=== PATIENT | male | born 1935 | race Caucasian/White ===

== ENCOUNTER 2016-05-30 16:29 | Inpatient (IN) | payer OTHER ==
[~2016-05-30] VITALS: Ht 175.3 cm; Wt 67.9 kg
[2016-05-30] VITALS (11 sets, daily range): BP systolic 122–181; BP diastolic 73–96
[2016-05-30 17:20] LABS: BASO % 0.2 % (0.0-1.0); EOS % 0.3 % (0.0-3.0); LARGE UNSTAINED CELL # 0.1 K/mm3 (0.0-0.4); LARGE UNSTAINED CELL % 0.8 % (0.0-4.0); LYMPH # 1.1 K/mm3 (1.5-4.5); LYMPH % 8.8 % (24.0-44.0); MEAN CORPUSCULAR HEMOGLOBIN 32.5 pg (27.0-33.0); MEAN CORPUSCULAR HGB CONC 35.1 g/dl (32.0-36.5); MEAN CORPUSCULAR VOLUME 92.4 fl (80.0-96.0); MONO # 0.7 K/mm3 (0.0-0.8); MONO % 5.1 % (0.0-5.0); NEUTROPHILS # 10.7 K/mm3 (1.8-7.7); NEUTROPHILS % 84.7 % (36.0-66.0); PLATELET COUNT, AUTOMATED 244 k/mm3 (150-450); RED CELL DISTRIBUTION WIDTH 11.5 % (11.5-14.5); WHITE BLOOD COUNT 12.6 K/mm3 (4.0-10.0)
[2016-05-30] MEDS ORDERED: KCL 20MEQ IN D5/NS 1000ML 1,000 ML IV SCH (17:21)
[2016-05-30 17:26] LABS: INR 1.24
[2016-05-30] MEDS ORDERED: ACETAMINOPHEN TAB 650MG DOSE (2X325MG) PO PRN (17:30)
[2016-05-30] MEDS ORDERED: NORCO, ANEXSIA 5/325MG TABLET (HYDROcodone/ACETAMINOPHEN) PO PRN (17:30)
[2016-05-30] MEDS ORDERED: BISACODYL 10 MG SUPP PR PRN (17:30)
[2016-05-30] MEDS ORDERED: PERCOCET 5MG/325MG TAB PO PRN (17:30)
[2016-05-30] MEDS ORDERED: LEVALBUTEROL 1.25 MG/0.5 ML CONCENTRATE NEB NEB PRN (17:30)
[2016-05-30] MEDS ORDERED: ONDANSETRON 4MG/2ML VIAL (J2405) IV PRN (17:30)
--- NOTE | 2016-05-30 17:30 | REP ---
Clinical: Trauma. Findings: There is a [id number] right pneumothorax with evidence for acute right rib fractures on recent rib series. Mediastinum and cardiac silhouette are normal in appearance and position without contralateral shift to suggest tension pneumothorax. Bibasilar atelectasis noted. Impression: [id number] right pneumothorax with right lower rib fractures. Signed by Ezequiel Madrid MD 05/30/2016 05:22 P
[2016-05-30] MEDS ORDERED: FLUMAZENIL 0.5 MG/5 ML VIAL As Ordered ONE (17:33)
[2016-05-30] MEDS ORDERED: MIDAZOLAM INJ 2 MG/2 ML VIAL (J2250) As Ordered ONE (17:33)
[2016-05-30] MEDS ORDERED: LIDOCAINE 1% MDV 20ML VIAL As Ordered ONE (17:34)
[2016-05-30 17:35] LABS: CREATININE FOR GFR 1.54 MG/DL (0.70-1.30); GLOMERULAR FILTRATION RATE 46.4 (>35)
[2016-05-30 17:38] LABS: POTASSIUM SERUM 4.4 MEQ/L (3.5-5.1)
[2016-05-30] MEDS ORDERED: KEPP1000 PO (17:44)
[2016-05-30] MEDS ORDERED: HYDR25TAB PO (17:44)
[2016-05-30] MEDS ORDERED: ASPI325T PO (17:44)
[2016-05-30] MEDS ORDERED: KEPP500T6 PO (17:44)
[2016-05-30] MEDS ORDERED: SIMV20TA2 PO (17:46)
[2016-05-30] MEDS ORDERED: LAMO25TA2 PO (17:46)
[2016-05-30] MEDS ORDERED: LISI25TA PO (17:46)
[2016-05-30] MEDS ORDERED: LEVO25TA34 PO (17:46)
--- NOTE | 2016-05-30 18:05 | EDDOCDS ---
Physician Documentation [facility] Name: Viral Montero Age: 81 yrs Sex: Male : 1935 Arrival Date: 05/30/2016 Time: 16:29 Bed 2 Private MD: Amarilys Gil FNP-C Disposition: 05/30/16 17:30 Hospitalization ordered by Joe Epps for Inpatient Admission. Preliminary diagnosis are Traumatic pneumothorax, Multiple fractures of ribs, right side. - Bed requested for PCU. - Status is Inpatient Admission. dy - Condition is Stable. - Problem is new. - Symptoms are unchanged. Historical: - Allergies: no known allergies; - Home Meds: 1. Sam Aspirin 325 mg oral tab 1 tab once daily 2. hydrochlorothiazide 25 mg Oral tab 1 tab 3. levetiracetam 1500mg oral tab 2 times per day 4. levothyroxine 25 mcg Oral cap 1 cap once daily 5. lamotrigine 25 mg Oral tab 2 tabs 2 times per day 6. lisinopril 2.5 mg Oral tab 1 tab once daily 7. simvastatin 20 mg Oral tab 1 tab once daily - PMHx: CVA x3; Hypercholesterolemia; Hypertension; Seizure Disorder; - PSHx: none; - Social history: Smoking status: Patient states was never smoker of tobacco. No barriers to communication noted, The patient speaks fluent Setswana, Speaks appropriately for age. - Family history: Not pertinent. - : The pt / caregiver states he / she is not on anticoagulants. Home medication list is obtained from family members. - Exposure Risk Screening:: None identified. Vital Signs: 05/30 16:31 BP 153 / 87; Pulse 75; Resp 18 S; Temp 97.6(T); Pulse Ox 95% on R/A; Weight 77.11 kg / dd6 170 lbs (R); Height 5 ft. 9 in. (175.26 cm) (R); 16:47 BP 144 / 73 (auto/); mlb1 16:48 Pulse 73 MON; Pulse Ox 94% ; mlb1 16:52 BP 137 / 81 (auto/); mlb1 16:53 Pulse 72 MON; Pulse Ox 98% ; mlb1 17:04 BP 132 / 76 (auto/); mlb1 17:05 Pulse 71 MON; Pulse Ox 99% ; mlb1 17:19 BP 124 / 72 (auto/); mlb1 17:20 Pulse 71 MON; Pulse Ox 97% ; mlb1 17:32 BP 125 / 73 (auto/); mlb1 17:33 BP 125 / 73; Pulse 68; Resp 20; Temp 98.3; Pulse Ox 97% on 2 lpm NC; jlf 17:33 Pulse 69 MON; Pulse Ox 97% ; mlb1 17:49 BP 125 / 69 (auto/); mlb1 17:49 Pulse 69 MON; Pulse Ox 97% ; mlb1 17:59 BP 131 / 70 (auto/); mlb1 17:59 Pulse 70 MON; Pulse Ox 98% ; mlb1 18:02 BP 130 / 68; Pulse 68; Resp 18; Temp 98.1(TE); Pulse Ox 98% on 2 lpm NC; Pain 0/10; mlb1 16:31 Body Mass Index 25.10 (77.11 kg, 175.26 cm) dd6 MDM: 16:38 Undress patient ordered. br1 16:38 IV Saline Lock ordered. br1 16:39 CBC with Diff Ordered. EDMS 16:39 BMP Ordered. EDMS 16:46 Ticket Scheduler/Pulse Ox/q 30 min VS ordered. br1 16:46 PT/INR Ordered. EDMS 16:47 PTT Ordered. EDMS 16:47 Chest, 1 View Ordered. EDMS 16:47 ECG WITH READING ER PHYS+CARDIAG ordered. EDMS 16:52 Oxygen at 2L/min via NC ordered. br1 17:16 Financial registration complete. jpb 17:18 [facility] [place] Payment Agreement was scanned into [employer] and attached to record. jpb 17:25 CBC with Diff Reviewed. br1 17:25 ARTERIAL BLOOD GAS Ordered. EDMS 17:28 Chest, 2 view PA, Lat Ordered. EDMS 17:28 Chest, 2 view PA, Lat Ordered. EDMS 17:28 Chest, 2 view PA, Lat Ordered. EDMS 17:28 Chest, 2 view PA, Lat Ordered. EDMS 17:28 Chest, 2 view PA, Lat Ordered. EDMS 17:28 Chest, 2 view PA, Lat Ordered. EDMS 17:28 Chest, 2 view PA, Lat Ordered. EDMS 17:28 Chest, 2 view PA, Lat Ordered. EDMS 17:28 Chest, 2 view PA, Lat Ordered. EDMS 17:28 Chest, 2 view PA, Lat Ordered. EDMS 17:29 Admission / Observation Status ordered. EDMS 17:29 REGULAR DIET ordered. EDMS Signatures: Dispatcher [employer] EDMS Hiwot Harmon, Magnetic Tape Composer Operator Unit lbd Lasha Bennett, RN RN Zurdo Reyes RN RN mlb1 Osvaldo Cantu MD MD br1 Shyam Whelan Kelsi, RN RN kc3 The chart was reviewed and I authenticate all verbal orders and agree with the evaluation and treatment provided.Attachments: 17:18 [facility] Payment Agreement [email or web address]
--- NOTE | 2016-05-30 18:05 | EDDOCDS ---
Nurse's Notes [facility] Name: Viral Montero Age: 81 yrs Sex: Male : 1935 Arrival Date: 05/30/2016 Time: 16:29 Bed 2 Private MD: Amarilys Gil FNP-C Diagnosis: Traumatic pneumothorax;Multiple fractures of ribs, right side Presentation: 05/30 16:32 Presenting complaint: states: fell from standing last night and sent from [facility] for broken ribs and partial collapsed lung. Adult Sepsis Screening: The patient does not have new or worsening altered mentation. Patient's respiratory rate is less than 22. Systolic blood pressure is greater than 100. Patient has a qSOFA score of 0- Negative Sepsis Screen. Suicide/Homicide risk assessment- the patient denies having any suicidal and/or homicidal ideations and does not present with any other emotional, behavioral or mental health complaints. Status: Patient is not a ward service supervisor or dependent. Transition of care: Patient was received from [facility]. 16:32 Acuity: NATHALIA Level 2 kc3 16:32 Method Of Arrival: Walkin/Carried/Asstd kc3 Triage Assessment: 16:35 General: Appears uncomfortable, Behavior is appropriate for age, cooperative. Pain: kc3 Location: right rib pain Pain currently is 8 out of 10 on a pain scale. Neurological: Level of Consciousness is awake, obeys commands, Speech with expressive aphasia noted. Respiratory: Airway is patent Respiratory effort is even, unlabored. Derm: Skin is pink, warm & dry. Musculoskeletal: Circulation, motion, and sensation intact. Historical: - Allergies: no known allergies; - Home Meds: 1. Sam Aspirin 325 mg oral tab 1 tab once daily 2. hydrochlorothiazide 25 mg Oral tab 1 tab 3. levetiracetam 1500mg oral tab 2 times per day 4. levothyroxine 25 mcg Oral cap 1 cap once daily 5. lamotrigine 25 mg Oral tab 2 tabs 2 times per day 6. lisinopril 2.5 mg Oral tab 1 tab once daily 7. simvastatin 20 mg Oral tab 1 tab once daily - PMHx: CVA x3; Hypercholesterolemia; Hypertension; Seizure Disorder; - PSHx: none; - Social history: Smoking status: Patient states was never smoker of tobacco. No barriers to communication noted, The patient speaks fluent Peruvian, Speaks appropriately for age. - Family history: Not pertinent. - : The pt / caregiver states he / she is not on anticoagulants. Home medication list is obtained from family members. - Exposure Risk Screening:: None identified. Screenin:34 Screening information is obtained from the patient, family members. Fall risk: At risk mlb1 due to prior history of falls, The following interventions are performed due to a positive Fall Risk Screen: Fall Risk is added to Special Handling on the patient Summary Screen. A Fall Risk Bracelet was applied to the patient. Side Rails are placed in the up position. A Call Duke is given with instruction to call for help when getting out of bed. Fall Alert bracelet is placed on the patient. Assistance ADL's: requires no assistance with activities of daily living. Abuse/DV Screen: The patient / caregiver reports he/she is: not in a situation that causes fear, pain or injury. Nutritional screening: No deficits noted. Advance Directives: There is no active DNR order. home support is adequate. Assessment: 17:15 General: Appears in no apparent distress, Behavior is appropriate for age, cooperative. mlb1 Pain: Location: right lateral anterior chest Unable to use pain scale. expressive aphasia. Neurological: Level of Consciousness is awake, alert, Oriented to person, place, Speech with expressive aphasia noted. Respiratory: Airway is patent Respiratory effort is even, unlabored, Breath sounds are clear bilaterally. Breath sounds are diminished. Derm: Skin is pink, warm & dry. Vital Signs: 16:31 BP 153 / 87; Pulse 75; Resp 18 S; Temp 97.6(T); Pulse Ox 95% on R/A; Weight 77.11 kg dd6 (R); Height 5 ft. 9 in. (175.26 cm) (R); 16:47 BP 144 / 73 (auto/); mlb1 16:48 Pulse 73 MON; Pulse Ox 94% ; mlb1 16:52 BP 137 / 81 (auto/); mlb1 16:53 Pulse 72 MON; Pulse Ox 98% ; mlb1 17:04 BP 132 / 76 (auto/); mlb1 17:05 Pulse 71 MON; Pulse Ox 99% ; mlb1 17:19 BP 124 / 72 (auto/); mlb1 17:20 Pulse 71 MON; Pulse Ox 97% ; mlb1 17:32 BP 125 / 73 (auto/); mlb1 17:33 BP 125 / 73; Pulse 68; Resp 20; Temp 98.3; Pulse Ox 97% on 2 lpm NC; jlf 17:33 Pulse 69 MON; Pulse Ox 97% ; mlb1 17:49 BP 125 / 69 (auto/); mlb1 17:49 Pulse 69 MON; Pulse Ox 97% ; mlb1 17:59 BP 131 / 70 (auto/); mlb1 17:59 Pulse 70 MON; Pulse Ox 98% ; mlb1 18:02 BP 130 / 68; Pulse 68; Resp 18; Temp 98.1(TE); Pulse Ox 98% on 2 lpm NC; Pain 0/10; mlb1 16:31 Body Mass Index 25.10 (77.11 kg, 175.26 cm) dd6 Vitals: 16:31 Log In Time: May 30, 2016 at 16:29. dd6 ED Course: 16:30 Patient visited by Raf Crowder PCA. dd6 16:30 Amarilys Gil is Private Physician. dd6 16:30 Patient moved to Waiting dd6 16:31 Patient moved to Pre RCE dd6 16:34 Triage Initiated kc3 16:36 Patient moved to 2 kc3 16:37 Osvaldo Cantu MD is Attending Physician. br1 16:44 Patient visited by Sherrie Lujan PCA. jlf 16:44 Pt greeted and oriented to ED. Patient advised of names of staff involved in care, jlf location of call duke, wait times and NPO status. Accompanied by Family Member, Patient has correct armband on for positive identification. Placed in gown. Bed in low position. Side rails up X2. settlement clerk on. Pulse ox on. NIBP on. 16:46 Patient visited by Osvaldo Cantu MD. br1 16:53 Patient visited by Sherrie Lujan PCA. jlf 16:53 Patient visited by Sherrie Lujan PCA. jlf 16:53 EKG done. (by ED staff). Reviewed by Osvaldo Cantu MD. jlf 16:59 PTT Sent. mlb1 16:59 PT/INR Sent. mlb1 16:59 BMP Sent. mlb1 16:59 CBC with Diff Sent. mlb1 16:59 Inserted saline lock: 18 gauge in left antecubital area and blood collected. The mlb1 patient tolerated the procedure well. 17:16 Patient visited by Sherrie Lujan PCA. jlf 17:18 [facility] Payment Agreement was scanned into [employer] and attached to record. jpb 17:30 Joe Epps MD is Hospitalizing Provider. br1 17:33 Patient visited by Sherrie Lujan PCA. jlf 17:34 Patient visited by Sherrie Lujan PCA. jlf 17:35 The patient / caregiver is instructed regarding the plan of care and ED course. mlb1 17:35 No procedures done that require assistance. mlb1 17:36 Patient visited by Zurdo Posada RN. [facility] Order Results: Lab Order: CBC with Diff; SPEC'M 05/30/16 16:55 Test: WHITE BLOOD COUNT; Value: 12.6; Range: 4.0-10.0; Abnormal: Above high normal; Units: K/mm3; Status: F Test: RED BLOOD COUNT; Value: 4.33; Range: 4.30-6.10; Units: M/mm3; Status: F Test: HEMOGLOBIN; Value: 14.1; Range: 14.0-18.0; Units: g/dl; Status: F Test: HEMATOCRIT; Value: 40.0; Range: 42.0-52.0; Abnormal: Below low normal; Units: %; Status: F Test: MEAN CORPUSCULAR VOLUME; Value: 92.4; Range: 80.0-96.0; Units: fl; Status: F Test: MEAN CORPUSCULAR HEMOGLOBIN; Value: 32.5; Range: 27.0-33.0; Units: pg; Status: F Test: MEAN CORPUSCULAR HGB CONC; Value: 35.1; Range: 32.0-36.5; Units: g/dl; Status: F Test: RED CELL DISTRIBUTION WIDTH; Value: 11.5; Range: 11.5-14.5; Units: %; Status: F Test: PLATELET COUNT, AUTOMATED; Value: 244; Range: 150-450; Units: k/mm3; Status: F Test: NEUTROPHILS %; Value: 84.7; Range: 36.0-66.0; Abnormal: Above high normal; Units: %; Status: F Test: LYMPH %; Value: 8.8; Range: 24.0-44.0; Abnormal: Below low normal; Units: %; Status: F Test: MONO %; Value: 5.1; Range: 0.0-5.0; Abnormal: Above high normal; Units: %; Status: F Test: EOS %; Value: 0.3; Range: 0.0-3.0; Units: %; Status: F Test: BASO %; Value: 0.2; Range: 0.0-1.0; Units: %; Status: F Test: LARGE UNSTAINED CELL %; Value: 0.8; Range: 0.0-4.0; Units: %; Status: F Test: NEUTROPHILS #; Value: 10.7; Range: 1.8-7.7; Abnormal: Above high normal; Units: K/mm3; Status: F Test: LYMPH #; Value: 1.1; Range: 1.5-4.5; Abnormal: Below low normal; Units: K/mm3; Status: F Test: MONO #; Value: 0.7; Range: 0.0-0.8; Units: K/mm3; Status: F Test: EOS #; Value: 0.0; Range: 0.0-0.50; Units: K/mm3; Status: F Test: BASO #; Value: 0.0; Range: 0.0-0.2; Units: K/mm3; Status: F Test: LARGE UNSTAINED CELL #; Value: 0.1; Range: 0.0-0.4; Units: K/mm3; Status: F Lab Order: [facility]; SPEC'M 05/30/16 16:55 Test: GLUCOSE, FASTING; Value: 121; Range: 83-110; Abnormal: Above high normal; Units: MG/DL; Status: F Test: BLOOD UREA NITROGEN; Value: 37; Range: 7-18; Abnormal: Above high normal; Units: MG/DL; Status: F Test: CREATININE FOR GFR; Value: 1.54; Range: 0.70-1.30; Abnormal: Above high normal; Units: MG/DL; Status: F Test: GLOMERULAR FILTRATION RATE; Value: 46.4; Range: >35; Status: F Test: SODIUM LEVEL; Value: 135; Range: 136-145; Abnormal: Below low normal; Units: MEQ/L; Status: F Test: POTASSIUM SERUM; Value: 4.4; Range: 3.5-5.1; Units: MEQ/L; Status: F Test: CHLORIDE LEVEL; Value: 97; Range: 98-107; Abnormal: Below low normal; Units: MEQ/L; Status: F Test: CARBON DIOXIDE LEVEL; Value: 30; Range: 21-32; Units: MEQ/L; Status: F Test: ANION GAP; Value: 8; Range: 8-16; Units: MEQ/L; Status: F Test: CALCIUM LEVEL; Value: 9.0; Range: 8.8-10.2; Units: MG/DL; Status: F Test Note: ; Units are mL/min/1.73 m2 Chronic Kidney Disease Staging per NKF: Stage I & II GFR >=60 Normal to Mildly Decreased Stage III GFR 30-59 Moderately Decreased Stage IV GFR 15-29 Severely Decreased Stage V GFR <15 Very Little GFR Left ESRD GFR <15 on COLOR RECEIVER Lab Order: PT/INR; SPEC'M 05/30/16 16:55 Test: PROTHROMBIN TIME; Value: 15.7; Range: 12.3-14.5; Abnormal: Above high normal; Units: SECONDS; Status: F Test: INR; Value: 1.24; Status: F Test Note: ; THERAPUTIC HUMAN INR VALUES INDICATIONS NORMAL RANGES PROPHYLAXIS/TREATMENT OF: VENOUS THROMBOSIS 2.0-3.0 PULMONARY EMBOLISM 2.0-3.0 PREVENTION OF SYSTEMIC EMBOLISM FROM: TISSUE HEART VALVES 2.0-3.0 ACUTE MYOCARDIAL INFARCTION 2.0-3.0 VALVULAR HEART DISEASE 2.0-3.0 ATRIAL FIBRILLATION 2.0-3.0 MECHANICAL VALVES(HIGH RISK) 2.5-3.5 RECURRENT MYOCARDIAL INFARCTION 2.5-3.5 Lab Order: PTT; SPEC'M 05/30/16 16:55 Test: PARTIAL THROMBOPLASTIN TIME; Value: 31.4; Range: 26.6-37.1; Units: SECONDS; Status: F Outcome: 17:30 Decision to Hospitalize by Provider. br1 18:02 Discharge Assessment: Patient awake, alert and oriented x 3. No cognitive and/or mlb1 functional deficits noted. Patient verbalized understanding of disposition instructions. patient administered narcotics - no. The following High Risk Discharge criteria are identified: None. Admitted to PCU accompanied by nurse, accompanied by tech, with oxygen, on monitor, with chart. Condition: good. No special radiology studies were completed. Property :Personal belongings accompany Pt. 18:05 Patient left the ED. dy Signatures: Lasha Bennett, RN RN Zurdo Reyes RN RN mlb1 Osvaldo Cantu MD MD br1 Raf Crowder, RAQUEL DIRECTOR PERSONAL [email or web address] Shyam Whelan Jordain, [facility] [place],RN RN kc3 MTDMary
--- NOTE | 2016-05-30 19:25 | REP ---
Clinical: Status post chest tube placement. Comparison: 05/30/2016 at 05:18 p.m. Findings: The patient is status post right chest tube placement extending to the medial right upper lung zone. Small residual right apical pneumothorax identified along with trace basilar atelectasis. This time and cardiac silhouette stable. Right rib fractures noted and best appreciated on prior rib examination dated 05/30/2016 at 03:04 p.m. Impression: Very small residual right apical pneumothorax. Basilar atelectasis. Right rib fractures. Signed by Ezequiel Madrid MD 05/30/2016 07:16 P
--- NOTE | 2016-05-30 19:42 | HPE ---
DATE OF ADMISSION: 05/30/2016 The patient is seen at the request of Dr. Cantu of the emergency room for pneumothorax and fractured ribs on the right side. HISTORY OF PRESENT ILLNESS: The patient is an 81-year-old white male who last night, while going to the bathroom, fell on his right side onto the bathtub. His was in the next room and heard him fall and hurried to his side to help him. He was able to get back up and get back to bed. Nonetheless, he had a lot of pain and he became more short of breath over the succeeding 18 hours. Prior to this, he has had no cough or sputum production. No fevers, chills or sweats. He has not had any shortness of breath prior to the fall. There has been no paroxysmal nocturnal dyspnea or orthopnea. There is no dysphagia and he has been able to maintain his weight. He was brought to the emergency room today where he was found to have a 50% pneumothorax with multiple fractured ribs of 7, 8, and 9. PAST MEDICAL HISTORY: Status post three strokes, two in 2012 and one in 2015. This has left him with a dysarthria. In the first few strokes he had seizures confined to his right arm, which has been treated with anticonvulsants and he has not had a seizure since. He also has hypertension and hypothyroidism. No history of myocardial infarctions. PAST SURGICAL HISTORY: None. ALLERGIES: None. MEDICATIONS: At home include: - aspirin 325 mg daily - hydrochlorothiazide 25 mg daily - Keppra 1500 mg twice a day - Synthroid 25 mg daily - lamotrigine 25 mg twice a day - Lisinopril 2.5 mg daily - simvastatin 20 mg at night HABITS: Does not smoke. Does not imbibe alcohol. TRAVEL HISTORY: They have been to [place] in the past five years. No travels to the [facility]. He is originally from [place], having moved here in 2012. No other foreign travel. EXPOSURES: To be determined at a later time. 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 He has also been an junior staff accountant. FAMILY HISTORY: Mother of diabetes and dementia. Father of a stroke. REVIEW OF SYSTEMS: Most of the review of systems and history of present illness is obtained from his because of his dysarthria and difficulty with communication. CONSTITUTIONAL: Without fevers, chills, sweats, night sweats, or weight loss. EYES: does not think that he has had diplopia, nor he has had amaurosis fugax. He has not been icteric. NOSE: Without epistaxis. MOUTH: He has his own teeth. RESPIRATORY: Before his fall, without shortness of breath, cough, sputum production. CARDIAC: Without myocardial infarction or intermittent claudication, orthopnea, or paroxysmal nocturnal dyspnea. GASTROINTESTINAL: Without nausea, vomiting, diarrhea, constipation. She does not know what color his bowel movements are. GENITOURINARY: Is able to urinate on his own. No history of hematuria or renal stones. NEUROLOGIC: The above strokes, which has left him with dysarthria. He is able to ambulate. Just last week they obtained a walker. ENDOCRINE: Without diabetes. With hypothyroidism, treated with Synthroid. PSYCHIATRIC: No known psychoses or pathological anxieties. He has been depressed in the last few months. PHYSICAL EXAMINATION: VITAL SIGNS: His blood pressure upon admission to the emergency room was 157/87 with a pulse of 75 in a sinus rhythm, respiratory rate of 18 without the use of accessory muscles, who is 96% saturated on room air with a temperature of 97.6. He weighs 77.1 kg. EYES: Pupils are round, equal and reactive to light. Extraocular muscles intact. Sclerae nonicteric. NOSE: Without deformity. MOUTH: Shows his mucous membranes to be pink and moist. Lips and commissures without lesions. There is no thrush. Teeth are in good repair. HEAD: Normocephalic. NECK: Supple. There is no jugular venous distention (JVD). No subcutaneous emphysema. Trachea is midline. There are no carotid bruits. He has 2+ carotid upstrokes. No thyromegaly. LUNGS: Show decreased breath sounds on the right side, although he will not take a very big deep breath secondary to pain. I hear no wheezes, rhonchi or rales, however. CARDIAC EXAM: Without murmurs, clicks, gallops or rubs. His heart sounds are distant. I cannot feel his PMI. S1, S2 are normal. ABDOMEN: Soft, nontender. Bowel sounds positive. There is no hepatomegaly. No costovertebral angle tenderness. EXTREMITIES: Show no pretibial edema. No calf tenderness. No differential swelling of the upper extremities. SKIN: Warm, dry, perfused without cyanosis or mottling, including that of the nail beds and knees. NEUROLOGIC: Shows II through XII intact. Gross motor and gross sensation intact. Gait is not tested. He has 5+ hand grasps and 5+ ankle dorsiflexion. He is dysarthric. He does try to communicate, with difficulty, however. PSYCHIATRIC: Shows him to be awake and alert. He knows where he is and he knows his . INVESTIGATIONS: His white count is 12.6 with a hemoglobin and hematocrit of 14.1 and 40.1, respectively, with a platelet count of 244. Differential shows 84% neutrophils, 8% lymphocytes, 5% monocytes. There are no immature forms. No toxic granulations. His chemistries show essentially normal electrolytes with a marginally low sodium of 135. BUN and creatinine are 37 and 1.54 with a glucose of 121 and a calcium 9.0. PT/INR are 15.7 and 1.24, respectively with a PTT of 31.4. Chest x-ray is described above with a 50% pneumothorax, and rib series shows multiple rib fractures, which are essentially nondisplaced of 7, 8, and 9. Costophrenic angles are sharp. There is no pleural effusion. IMPRESSION: 1. Multiple rib fractures. 2. Pneumothorax. 3. Cerebrovascular disease. 4. History of seizures. 5. Hypertension. 6. Hypothyroidism. 7. Hypercholesterolemia. PLAN AND DISCUSSION: I will immediately place a chest tube. I will place it anteriorly to get the lung back up. Because of his renal dysfunction, I will not use Toradol. We will treat his pain with oral pain medications. We will continue him on his anticonvulsant medications. We will also do the routine prophylaxis for deep vein thrombosis (DVT).
[2016-05-30] MEDS: LEVALBUTEROL 1.25 MG/0.5 ML CONCENTRATE NEB NEB SCH (20:00)
[2016-05-30] MEDS ORDERED: MIDAZOLAM INJ 2 MG/2 ML VIAL (J2250) IV STA (20:01)
[2016-05-30] MEDS ORDERED: LIDOCAINE 1% MDV 20ML VIAL SC ONE (20:15)
--- NOTE | 2016-05-30 20:30 | RO ---
DATE OF PROCEDURE: 05/30/2016 PREPROCEDURE DIAGNOSIS: Right pneumothorax. POSTPROCEDURE DIAGNOSIS: Right pneumothorax. PROCEDURE: Insertion of right anterior chest tube with moderate sedation. SURGEON: Dr. Joe Epps LANE ATTENDANT: ANESTHESIA: DESCRIPTION OF PROCEDURE: Under satisfactory moderate sedation achieved with 2 mg of Versed, the patient was prepped and draped in the usual sterile fashion. Incision was made over the second rib and a tunnel created at the first interspace. A #20 chest tube was placed without difficulty and secured to the chest wall with a #2 Tevdek suture. The chest tube was connected to a Pleur-evac with an initial gush of air which ceased after about 10 seconds. The patient tolerated the procedure well and a chest x-ray is pending.
[2016-05-30] MEDS ORDERED: levETIRAcetam 250MG TABLET (KEPPRA) PO SCH (21:00)
[2016-05-30] MEDS: ASPIRIN 325 MG TAB PO SCH (22:01)
[2016-05-30] MEDS: levETIRAcetam 250MG TABLET (KEPPRA) PO SCH (22:01)
[2016-05-30] MEDS: PERCOCET 5MG/325MG TAB PO PRN (22:02)
[2016-05-30] MEDS: SIMVASTATIN 20 MG TAB PO SCH (22:02)
[2016-05-30] MEDS: lamoTRIgine 25 MG TAB PO SCH (22:02)
[2016-05-30] MEDS: DOCUSATE SODIUM 100 MG CAP PO SCH (22:02)
[2016-05-30] MEDS: HEPARIN SOD (PORCINE) 5000 UNITS/ML VIAL SC SCH (22:03)
[2016-05-31] VITALS (11 sets, daily range): BP systolic 130–161; BP diastolic 67–87
[2016-05-31] MEDS: LEVALBUTEROL 1.25 MG/0.5 ML CONCENTRATE NEB NEB SCH ×4 (01:32→19:35)
[2016-05-31 05:52] LABS: ABG BASE EXCESS 2.5 (-2.0-2.0); ABG HCO3 26.5 MEQ/L (22.0-26.0); ABG PARTIAL PRESSURE CO2 39.1 mmHg (35.0-45.0); ABG PARTIAL PRESSURE O2 92.4 mmHg (75.0-100.0); ABG STANDARD HCO3 26.6 MEQ/L (22.0-26.0); ABG TOTAL CO2 27.7 MEQ/L (23.0-31.0); ABG pH (ARTERIAL) 7.449 UNITS (7.350-7.450)
[2016-05-31 05:56] LABS: BASO % 0.6 % (0.0-1.0); EOS # 0.1 K/mm3 (0.0-0.50); EOS % 1.5 % (0.0-3.0); LARGE UNSTAINED CELL # 0.1 K/mm3 (0.0-0.4); LARGE UNSTAINED CELL % 1.2 % (0.0-4.0); LYMPH # 1.2 K/mm3 (1.5-4.5); MEAN CORPUSCULAR HEMOGLOBIN 31.3 pg (27.0-33.0); MEAN CORPUSCULAR HGB CONC 34.4 g/dl (32.0-36.5); MEAN CORPUSCULAR VOLUME 90.9 fl (80.0-96.0); MONO # 0.6 K/mm3 (0.0-0.8); MONO % 6.7 % (0.0-5.0); NEUTROPHILS # 6.5 K/mm3 (1.8-7.7); NEUTROPHILS % 76.1 % (36.0-66.0); PLATELET COUNT, AUTOMATED 185 k/mm3 (150-450); RED CELL DISTRIBUTION WIDTH 11.6 % (11.5-14.5); WHITE BLOOD COUNT 8.5 K/mm3 (4.0-10.0)
[2016-05-31 06:17] LABS: CALCIUM LEVEL 8.6 MG/DL (8.8-10.2); CREATININE FOR GFR 1.26 MG/DL (0.70-1.30); GLOMERULAR FILTRATION RATE 58.5 (>35); POTASSIUM SERUM 4.1 MEQ/L (3.5-5.1)
[2016-05-31] MEDS: PERCOCET 5MG/325MG TAB PO PRN ×2 (06:43→21:01)
[2016-05-31] MEDS: LEVOTHYROXINE 0.025 MG TAB (25 MCG) PO SCH (06:43)
[2016-05-31] MEDS ORDERED: FLUMAZENIL 0.5 MG/5 ML VIAL As Ordered ONE (08:45)
[2016-05-31] MEDS ORDERED: MIDAZOLAM INJ 2 MG/2 ML VIAL (J2250) As Ordered ONE (08:45)
[2016-05-31] MEDS ORDERED: LIDOCAINE 1% MDV 20ML VIAL As Ordered ONE (08:48)
--- NOTE | 2016-05-31 08:54 | REP ---
Chest x-ray: Two views. History: Pneumothorax. Comparison chest x-ray is from May 30, 2016. Findings: Right upper chest tube is noted in place terminating medially overlying the midline. There is a small right apical pneumothorax with an apical pleural air collection today measuring 16 mm in thickness. This is increased from yesterday's study when it measured 3-4 mm. There is discoid atelectasis in the right base in the lower lobe distribution. Slight blunting of the right lateral and posterior pleural angles is seen. The left lung is clear except for some mild plate-like atelectasis in its base. Impression: Small right-sided pneumothorax, increased somewhat from yesterday's chest x-ray. Signed by Aung Rizo MD 05/31/2016 10:39 A
[2016-05-31] MEDS ORDERED: PANTOPRAZOLE 40MG TAB (PROTONIX) PO SCH (09:00)
[2016-05-31] MEDS: MOM 30ML SUSPENSION UDC PO SCH (10:06)
[2016-05-31] MEDS: hydroCHLOROthiazide 25 MG TAB PO SCH (10:07)
[2016-05-31] MEDS: LISINOPRIL *2.5 MG* TAB PO SCH (10:07)
[2016-05-31] MEDS: DOCUSATE SODIUM 100 MG CAP PO SCH ×2 (10:07→21:00)
[2016-05-31] MEDS: levETIRAcetam 250MG TABLET (KEPPRA) PO SCH ×2 (10:07→20:59)
[2016-05-31] MEDS: lamoTRIgine 25 MG TAB PO SCH ×2 (10:07→21:01)
[2016-05-31] MEDS: HEPARIN SOD (PORCINE) 5000 UNITS/ML VIAL SC SCH ×2 (10:08→20:59)
[2016-05-31] MEDS: PANTOPRAZOLE 40MG INJ (PROTONIX) (C9113) IV SCH (10:08)
--- NOTE | 2016-05-31 10:10 | REP ---
Portable chest x-ray: Sitting AP view. History: Status post chest tube readjustment. Findings: The right chest tube has been withdrawn slightly. A small right apical pneumothorax is again seen. This is slightly decreased from the earlier film. An 8 mm pleural air gap is seen at the apex as opposed to 16 mm previously. Bibasilar plate-like atelectasis persists. Impression: Right chest tube is repositioned. Small right apical pneumothorax persists, however, this has decreased compared to the earlier film. Signed by Aung Rizo MD 05/31/2016 10:43 A
--- NOTE | 2016-05-31 10:19 | IPN ---
DATE: 05/31/2016 Mr. Montero can breath a lot better today. His pain is being well controlled at the chest tube insertion site. Chest x-ray today, however still shows a residual pneumothorax and the tube is not in good place but rather to the mediastinum. I will therefore reposition it. His vital signs show a maximum temperature (Tmax) of 98.6 with a heart rate that ranges between 64-70 in a sinus rhythm, respiratory rate that is constant at 18 without the use of accessory muscles, who is 98-99% saturated on 2 liters nasal cannula and his blood pressure is ranging between 134/70 to 181/83. His intake and output for the past 24 hours has been recorded as 750 in and 400 our for a positivity of 350 mL. He has put out nothing from the chest tube, and there is no air leak. On physical examination, his lungs show breath sounds are equal on either side. Percussion note is full to the diaphragm. I hear no wheezes, rhonchi or rales. Cardiac exam is without murmurs, clicks, gallops, or rubs. I cannot feel his point of maximum impulse (PMI). S1, S2 are normal. Abdomen is soft, nontender. Bowel sounds are positive. There is no hepatomegaly, no costovertebral angle tenderness. Extremities show no pretibial edema, no calf tenderness. No differential swelling of the upper extremities. Skin is warm, dry and perfused without cyanosis or mottling, including that of the nail beds and the knees. Neck is supple. There is no jugular venous distention, no subcutaneous emphysema. Trachea is midline. Mouth shows his mucous membranes to be pink and moist. Lips and commissures without lesions. There is no thrush. Eyes show his pupils to be equal and reactive. Extraocular motions are intact. Sclerae anicteric. Neurologic shows II-XII intact along with gross motor and gross sensation intact. Gait is not tested. Psychiatric shows him to be awake and alert and attempting to be conversational through his dysarthria. His white count today is 8.5 with hemoglobin and hematocrit of 12.9 and 37.4, and a platelet count of 185. Differential shows 76% neutrophils, 14% lymphocytes, 6% monocytes. There are no immature forms, no toxic granulations. Electrolytes are normal with a BUN and creatinine of 30 and 1.26, which has now normalized. Glucose is 122 with calcium of 8.6. Blood gases today show pH of 7.44, pCO2 of 39 and a pO2 of 92 on the 2 liters nasal cannula. Base excess is 2.5. Chest x-ray is described above. There is still residual pneumothorax with the chest tube being posterior and into the mediastinum adjacent to the vertebral column. I see no infiltrates. IMPRESSION: 1. Multiple rib fractures. 2. Pneumothorax. 3. Cerebrovascular disease. 4. History of seizures. 5. Hypertension. 6. Hypothyroidism. 7. Hypercholesterolemia. PLAN AND DISCUSSION: I will reposition the chest tube today and place him on 40 cm of suction to evacuate the rest of the air. He has already been up out of bed and into a chair and has taken in good oral intake. We will continue to have appropriate deep venous thrombosis (DVT) and continue to treat residual pain.
[2016-05-31] MEDS ORDERED: MIDAZOLAM INJ 2 MG/2 ML VIAL (J2250) IV STA (11:17)
[2016-05-31] MEDS ORDERED: LIDOCAINE 1% MDV 20ML VIAL SC ONE (11:30)
--- NOTE | 2016-05-31 17:58 | ECGEPIP ---
Stationary ECG Study [facility] - ED Test Date: 2016-05-30 Pat Name: CHANDNI TIRADO Department: Room: - Gender: M Leaflet [employer] Newsp[employer] Deliverer: michela : 1935 Requested By: PAOLA Watts Order Number: [id number] Reading MD: Mel Gonzales Measurements Intervals [place] Rate: 72 P: 51 MT: 188 QRS: 4 QRSD: 98 T: 28 QT: 382 QTc: 419 Interpretive Statements SINUS RHYTHM INFERIOR MYOCARDIAL INFARCTION, PROBABLY OLD WITH POSTERIOR EXTENSION DECREASED RATE 05/16/16 Electronically Signed On 05-31-2016 17:58:28 EST by Mel Gonzales
[2016-05-31] MEDS: ASPIRIN 325 MG TAB PO SCH (20:59)
[2016-05-31] MEDS: SIMVASTATIN 20 MG TAB PO SCH (21:00)
[2016-06-01 00:48] VITALS: BP 127/75
[2016-06-01] MEDS: LEVALBUTEROL 1.25 MG/0.5 ML CONCENTRATE NEB NEB SCH ×4 (02:00→19:58)
[2016-06-01] MEDS: PERCOCET 5MG/325MG TAB PO PRN ×2 (03:15→16:06)
[2016-06-01 04:15] VITALS: BP 142/65
[2016-06-01 05:54] LABS: BASO # 0.1 K/mm3 (0.0-0.2); BASO % 0.9 % (0.0-1.0); EOS # 0.3 K/mm3 (0.0-0.50); EOS % 2.4 % (0.0-3.0); LARGE UNSTAINED CELL # 0.1 K/mm3 (0.0-0.4); LARGE UNSTAINED CELL % 0.9 % (0.0-4.0); LYMPH # 1.5 K/mm3 (1.5-4.5); LYMPH % 12.3 % (24.0-44.0); MEAN CORPUSCULAR HEMOGLOBIN 31.4 pg (27.0-33.0); MEAN CORPUSCULAR HGB CONC 34.1 g/dl (32.0-36.5); MEAN CORPUSCULAR VOLUME 92.1 fl (80.0-96.0); MONO # 0.8 K/mm3 (0.0-0.8); MONO % 7.4 % (0.0-5.0); NEUTROPHILS # 8.4 K/mm3 (1.8-7.7); NEUTROPHILS % 76.1 % (36.0-66.0); PLATELET COUNT, AUTOMATED 194 k/mm3 (150-450); RED CELL DISTRIBUTION WIDTH 12.5 % (11.5-14.5); WHITE BLOOD COUNT 11.1 K/mm3 (4.0-10.0)
[2016-06-01 06:08] LABS: ANION GAP 7 MEQ/L (8-16); BLOOD UREA NITROGEN 23 MG/DL (7-18); CALCIUM LEVEL 8.8 MG/DL (8.8-10.2); CARBON DIOXIDE LEVEL 29 MEQ/L (21-32); CHLORIDE LEVEL 102 MEQ/L (98-107); CREATININE FOR GFR 1.18 MG/DL (0.70-1.30); GLOMERULAR FILTRATION RATE > 60.0 (>35); GLUCOSE, FASTING 107 MG/DL (83-110); SODIUM LEVEL 138 MEQ/L (136-145)
[2016-06-01] MEDS: LEVOTHYROXINE 0.025 MG TAB (25 MCG) PO SCH (07:02)
[2016-06-01 08:00] VITALS: BP 144/88
--- NOTE | 2016-06-01 08:26 | REP ---
Clinical: Follow up pneumothorax. Comparison: 05/31/2016. Technique: PA and lateral. Findings: Chest tube in stable position. Small residual right apical pneumothorax without significant change from recent prior examination. Bibasilar pleuroparenchymal changes are again identified and essentially stable. Right rib fractures again noted. No new acute process. Mediastinum and cardiac silhouette stable. Impression: 1. Small residual right apical pneumothorax and stable bibasilar pleuroparenchymal changes. 2. No new acute process identified. Signed by Ezequiel Madrid MD 06/01/2016 08:17 A
[2016-06-01] MEDS: hydroCHLOROthiazide 25 MG TAB PO SCH (08:52)
[2016-06-01] MEDS: HEPARIN SOD (PORCINE) 5000 UNITS/ML VIAL SC SCH ×2 (08:52→21:16)
[2016-06-01] MEDS: lamoTRIgine 25 MG TAB PO SCH ×2 (08:52→21:16)
[2016-06-01] MEDS: DOCUSATE SODIUM 100 MG CAP PO SCH ×2 (08:53→21:15)
[2016-06-01] MEDS: LISINOPRIL *2.5 MG* TAB PO SCH (08:53)
[2016-06-01] MEDS: levETIRAcetam 250MG TABLET (KEPPRA) PO SCH ×2 (08:53→21:16)
[2016-06-01] MEDS: MOM 30ML SUSPENSION UDC PO SCH (08:54)
[2016-06-01] MEDS: PANTOPRAZOLE 40MG INJ (PROTONIX) (C9113) IV SCH (08:54)
[2016-06-01 12:00] VITALS: BP 135/76
[2016-06-01 16:00] VITALS: BP 130/71
--- NOTE | 2016-06-01 16:35 | IPN ---
DATE: 06/01/2016 Mr. Montero's pain is being well controlled at the chest tube insertion site. He is not complaining of shortness of breath. There has been no fever or chills. His chest x-ray shows a small apical air space. His vital signs show a maximum temperature (T max) of 97.3 with a heart rate that ranges between 70 and 77 and is sinus rhythm, a respiratory rate that is constant at 18 who is 94% saturated on room air and whose blood pressure is ranging between 127/75 to 142/65. His intake and output the past 24 hours has been recorded as 1320 in and 500 out for a positivity of 820 mL. Weight today is 68.2 kg compared to 70.3 kg yesterday. He has put out nothing from the chest tube, and there is no air leak. On physical examination, his lungs show equal breath sounds on either side with normal vesicular sounds. I hear no wheezes, rhonchi or rales. Percussion note is full to the diaphragm. Cardiac exam is without murmurs, clicks, gallops or rubs. I cannot feel his point of maximum impulse (PMI). S1, S2 are normal. Abdomen is soft and nontender. Bowel sounds are positive. He is slightly distended. There is no hepatomegaly. No costovertebral angle tenderness. Extremities show no pretibial edema. No calf tenderness. No differential swelling of the upper extremities. Skin is warm, dry and perfused without cyanosis or mottling, including that of the nail beds and the knees. Neck is supple. There is no jugular venous distention, no subcutaneous emphysema. Trachea is midline. Mouth shows his mucous membranes to be pink and moist. Lips and commissures without lesions. There is no thrush. Eyes show his pupils to be equal and reactive. Extraocular motor intact. Sclerae anicteric. Neurologic shows II-XII intact along with gross motor and gross sensation intact. Gait is not tested. Psychiatric shows him to be awake and alert, oriented times three with appropriate mood and affect and conversational. White count is 11.1 with a hemoglobin and hematocrit of 12.7 and 37.2, unchanged from yesterday with a platelet count of 194 and stable. Differential shows 76% neutrophils, 12% lymphocytes, 7% monocytes. There are no immature forms, no toxic granulations. His electrolytes are normal with a BUN and creatinine of 23 and 1.18. Glucose is 107 with a calcium of 8.8. There are no blood gases on him today. His chest x-ray, as noted above, shows an apical air space. Chest tube is still not in the apex of the chest, however. It has been on 40 cm of suction. I see no other infiltrates. Lateral chest x-ray shows clear posterior parenchyma without evidence of infiltrates. The air space is less than it was yesterday, measuring 3 mm compared to 8 mm yesterday. The costophrenic angles are sharp. IMPRESSION: 1. Acute pneumothorax. 2. Multiple rib fractures; 7, 8 and 9. 3. Cerebrovascular disease. 4. History of seizures. 5. Hypertension. 6. Hypothyroidism. 7. Hypercholesterolemia. PLAN AND DISCUSSION: I will discontinue his chest tube suction today. If his lung remains unchanged on tomorrow's film, I will remove his chest tube and plan for discharge the day after.
--- NOTE | 2016-06-01 19:06 | EDDOCDS ---
Physician Documentation [facility] Name: Viral Montero Age: 81 yrs Sex: Male : 1935 Arrival Date: 05/30/2016 Time: 16:29 Bed 2 Private MD: Amarilys Gil FNP-C Disposition: 05/30/16 17:30 Hospitalization ordered by Joe Epps for Inpatient Admission. Preliminary diagnosis are Traumatic pneumothorax, Multiple fractures of ribs, right side. - Bed requested for PCU. - Status is Inpatient Admission. dy - Condition is Stable. - Problem is new. - Symptoms are unchanged. Historical: - Allergies: no known allergies; - Home Meds: 1. Sam Aspirin 325 mg oral tab 1 tab once daily 2. hydrochlorothiazide 25 mg Oral tab 1 tab 3. levetiracetam 1500mg oral tab 2 times per day 4. levothyroxine 25 mcg Oral cap 1 cap once daily 5. lamotrigine 25 mg Oral tab 2 tabs 2 times per day 6. lisinopril 2.5 mg Oral tab 1 tab once daily 7. simvastatin 20 mg Oral tab 1 tab once daily - PMHx: CVA x3; Hypercholesterolemia; Hypertension; Seizure Disorder; - PSHx: none; - Social history: Smoking status: Patient states was never smoker of tobacco. No barriers to communication noted, The patient speaks fluent [place], Speaks appropriately for age. - Family history: Not pertinent. - : The pt / caregiver states he / she is not on anticoagulants. Home medication list is obtained from family members. - Exposure Risk Screening:: None identified. Vital Signs: 05/30 16:31 BP 153 / 87; Pulse 75; Resp 18 S; Temp 97.6(T); Pulse Ox 95% on R/A; Weight 77.11 kg / dd6 170 lbs (R); Height 5 ft. 9 in. (175.26 cm) (R); 16:47 BP 144 / 73 (auto/); mlb1 16:48 Pulse 73 MON; Pulse Ox 94% ; mlb1 16:52 BP 137 / 81 (auto/); mlb1 16:53 Pulse 72 MON; Pulse Ox 98% ; mlb1 17:04 BP 132 / 76 (auto/); mlb1 17:05 Pulse 71 MON; Pulse Ox 99% ; mlb1 17:19 BP 124 / 72 (auto/); mlb1 17:20 Pulse 71 MON; Pulse Ox 97% ; mlb1 17:32 BP 125 / 73 (auto/); mlb1 17:33 BP 125 / 73; Pulse 68; Resp 20; Temp 98.3; Pulse Ox 97% on 2 lpm NC; jlf 17:33 Pulse 69 MON; Pulse Ox 97% ; mlb1 17:49 BP 125 / 69 (auto/); mlb1 17:49 Pulse 69 MON; Pulse Ox 97% ; mlb1 17:59 BP 131 / 70 (auto/); mlb1 17:59 Pulse 70 MON; Pulse Ox 98% ; mlb1 18:02 BP 130 / 68; Pulse 68; Resp 18; Temp 98.1(TE); Pulse Ox 98% on 2 lpm NC; Pain 0/10; mlb1 16:31 Body Mass Index 25.10 (77.11 kg, 175.26 cm) dd6 MDM: 16:38 Undress patient ordered. br1 16:38 IV Saline Lock ordered. br1 16:39 CBC with Diff Ordered. EDMS 16:39 BMP Ordered. EDMS 16:46 [employer]s I Assembler/Pulse Ox/q 30 min VS ordered. br1 16:46 PT/INR Ordered. EDMS 16:47 PTT Ordered. EDMS 16:47 Chest, 1 View Ordered. EDMS 16:47 ECG WITH READING ER PHYS+CARDIAG ordered. EDMS 16:52 Oxygen at 2L/min via NC ordered. br1 17:16 Financial registration complete. jpb 17:18 [facility] [place] was scanned into Docstoc and attached to record. jpb 17:25 CBC with Diff Reviewed. br1 17:25 ARTERIAL BLOOD GAS Ordered. EDMS 17:28 Chest, 2 view PA, Lat Ordered. EDMS 17:28 Chest, 2 view PA, Lat Ordered. EDMS 17:28 Chest, 2 view PA, Lat Ordered. EDMS 17:28 Chest, 2 view PA, Lat Ordered. EDMS 17:28 Chest, 2 view PA, Lat Ordered. EDMS 17:28 Chest, 2 view PA, Lat Ordered. EDMS 17:28 Chest, 2 view PA, Lat Ordered. EDMS 17:28 Chest, 2 view PA, Lat Ordered. EDMS 17:28 Chest, 2 view PA, Lat Ordered. EDMS 17:28 Chest, 2 view PA, Lat Ordered. EDMS 17:29 Admission / Observation Status ordered. EDMS 17:29 REGULAR DIET ordered. EDMS 05/31 10:59 T-Sheet-- Draft Copy was scanned into [employer] and attached to record. gb 10:59 ECG/EKG was scanned into [employer] and attached to record. gb Signatures: Dispatcher [employer] EDMS Hiwot Harmon, Cnc Mill Operator Unit lbd Starr Ross, Reg Reg gb Lasha Bennett, DARIANA RN Zurdo Reyes RN RN mlb1 Osvaldo Cantu MD MD br1 Shyam Whelan Kelsi, RN RN [id number] The chart was reviewed and I authenticate all verbal orders and agree with the evaluation and treatment provided.Attachments: 05/30 17:18 [facility] [place] jpb 05/31 10:59 T-Sheet-- Draft Copy gb 10:59 ECG/EKG gb Chart Complete MTDD
--- NOTE | 2016-06-01 19:06 | EDDOCDS ---
Nurse's Notes [facility] Name: Viral Montero Age: 81 yrs Sex: Male : 1935 Arrival Date: 05/30/2016 Time: 16:29 Bed 2 Private MD: Amarilys iGl FNP-C Diagnosis: Traumatic pneumothorax;Multiple fractures of ribs, right side Presentation: 05/30 16:32 Presenting complaint: states: fell from standing last night and sent from [facility] for broken ribs and partial collapsed lung. Adult Sepsis Screening: The patient does not have new or worsening altered mentation. Patient's respiratory rate is less than 22. Systolic blood pressure is greater than 100. Patient has a qSOFA score of 0- Negative Sepsis Screen. Suicide/Homicide risk assessment- the patient denies having any suicidal and/or homicidal ideations and does not present with any other emotional, behavioral or mental health complaints. Status: Patient is not a mechanical technical service specialist or dependent. Transition of care: Patient was received from [facility]. 16:32 Acuity: NATHALIA Level 2 kc3 16:32 Method Of Arrival: Walkin/Carried/Asstd kc3 Triage Assessment: 16:35 General: Appears uncomfortable, Behavior is appropriate for age, cooperative. Pain: kc3 Location: right rib pain Pain currently is 8 out of 10 on a pain scale. Neurological: Level of Consciousness is awake, obeys commands, Speech with expressive aphasia noted. Respiratory: Airway is patent Respiratory effort is even, unlabored. Derm: Skin is pink, warm & dry. Musculoskeletal: Circulation, motion, and sensation intact. Historical: - Allergies: no known allergies; - Home Meds: 1. Sam Aspirin 325 mg oral tab 1 tab once daily 2. hydrochlorothiazide 25 mg Oral tab 1 tab 3. levetiracetam 1500mg oral tab 2 times per day 4. levothyroxine 25 mcg Oral cap 1 cap once daily 5. lamotrigine 25 mg Oral tab 2 tabs 2 times per day 6. lisinopril 2.5 mg Oral tab 1 tab once daily 7. simvastatin 20 mg Oral tab 1 tab once daily - PMHx: CVA x3; Hypercholesterolemia; Hypertension; Seizure Disorder; - PSHx: none; - Social history: Smoking status: Patient states was never smoker of tobacco. No barriers to communication noted, The patient speaks fluent Wallisian, Speaks appropriately for age. - Family history: Not pertinent. - : The pt / caregiver states he / she is not on anticoagulants. Home medication list is obtained from family members. - Exposure Risk Screening:: None identified. Screenin:34 Screening information is obtained from the patient, family members. Fall risk: At risk mlb1 due to prior history of falls, The following interventions are performed due to a positive Fall Risk Screen: Fall Risk is added to Special Handling on the patient Summary Screen. A Fall Risk Bracelet was applied to the patient. Side Rails are placed in the up position. A Call Duke is given with instruction to call for help when getting out of bed. Fall Alert bracelet is placed on the patient. Assistance ADL's: requires no assistance with activities of daily living. Abuse/DV Screen: The patient / caregiver reports he/she is: not in a situation that causes fear, pain or injury. Nutritional screening: No deficits noted. Advance Directives: There is no active DNR order. home support is adequate. Assessment: 17:15 General: Appears in no apparent distress, Behavior is appropriate for age, cooperative. mlb1 Pain: Location: right lateral anterior chest Unable to use pain scale. expressive aphasia. Neurological: Level of Consciousness is awake, alert, Oriented to person, place, Speech with expressive aphasia noted. Respiratory: Airway is patent Respiratory effort is even, unlabored, Breath sounds are clear bilaterally. Breath sounds are diminished. Derm: Skin is pink, warm & dry. Vital Signs: 16:31 BP 153 / 87; Pulse 75; Resp 18 S; Temp 97.6(T); Pulse Ox 95% on R/A; Weight 77.11 kg dd6 (R); Height 5 ft. 9 in. (175.26 cm) (R); 16:47 BP 144 / 73 (auto/); mlb1 16:48 Pulse 73 MON; Pulse Ox 94% ; mlb1 16:52 BP 137 / 81 (auto/); mlb1 16:53 Pulse 72 MON; Pulse Ox 98% ; mlb1 17:04 BP 132 / 76 (auto/); mlb1 17:05 Pulse 71 MON; Pulse Ox 99% ; mlb1 17:19 BP 124 / 72 (auto/); mlb1 17:20 Pulse 71 MON; Pulse Ox 97% ; mlb1 17:32 BP 125 / 73 (auto/); mlb1 17:33 BP 125 / 73; Pulse 68; Resp 20; Temp 98.3; Pulse Ox 97% on 2 lpm NC; jlf 17:33 Pulse 69 MON; Pulse Ox 97% ; mlb1 17:49 BP 125 / 69 (auto/); mlb1 17:49 Pulse 69 MON; Pulse Ox 97% ; mlb1 17:59 BP 131 / 70 (auto/); mlb1 17:59 Pulse 70 MON; Pulse Ox 98% ; mlb1 18:02 BP 130 / 68; Pulse 68; Resp 18; Temp 98.1(TE); Pulse Ox 98% on 2 lpm NC; Pain 0/10; mlb1 16:31 Body Mass Index 25.10 (77.11 kg, 175.26 cm) dd6 Vitals: 16:31 Log In Time: May 30, 2016 at 16:29. dd6 ED Course: 16:30 Patient visited by Raf Crowder PCA. dd6 16:30 Amarilys Gil is Private Physician. dd6 16:30 Patient moved to Waiting dd6 16:31 Patient moved to Pre RCE dd6 16:34 Triage Initiated kc3 16:36 Patient moved to 2 kc3 16:37 Osvaldo Cantu MD is Attending Physician. br1 16:44 Patient visited by Sherrie Lujan PCA. jlf 16:44 Pt greeted and oriented to ED. Patient advised of names of staff involved in care, jlf location of call duke, wait times and NPO status. Accompanied by Family Member, Patient has correct armband on for positive identification. Placed in gown. Bed in low position. Side rails up X2. teletypesetter monitor on. Pulse ox on. NIBP on. 16:46 Patient visited by Osvaldo Cantu MD. br1 16:53 Patient visited by Sherrie Lujan PCA. jlf 16:53 Patient visited by Sherrie Lujan PCA. jlf 16:53 EKG done. (by ED staff). Reviewed by Osvaldo Cantu MD. jlf 16:59 PTT Sent. mlb1 16:59 PT/INR Sent. mlb1 16:59 BMP Sent. mlb1 16:59 CBC with Diff Sent. mlb1 16:59 Inserted saline lock: 18 gauge in left antecubital area and blood collected. The mlb1 patient tolerated the procedure well. 17:16 Patient visited by Sherrie Lujan PCA. jlf 17:18 [facility] [place] Payment Agreement was scanned into [employer] and attached to record. jpb 17:30 Joe Epps MD is Hospitalizing Provider. br1 17:33 Patient visited by Sherrie Lujan PCA. jlf 17:34 Patient visited by Sherrie Lujan PCA. jlf 17:35 The patient / caregiver is instructed regarding the plan of care and ED course. mlb1 17:35 No procedures done that require assistance. mlb1 17:36 Patient visited by Zurdo Posada RN. mlb1 18:18 Chest, 1 View Returned. EDMS 05/31 10:59 T-Sheet-- Draft Copy was scanned into [employer] and attached to record. gb 10:59 ECG/EKG was scanned into [employer] and attached to record. gb Order Results: Lab Order: CBC with Diff; SPEC'M 05/30/16 16:55 Test: WHITE BLOOD COUNT; Value: 12.6; Range: 4.0-10.0; Abnormal: Above high normal; Units: K/mm3; Status: F Test: RED BLOOD COUNT; Value: 4.33; Range: 4.30-6.10; Units: M/mm3; Status: F Test: HEMOGLOBIN; Value: 14.1; Range: 14.0-18.0; Units: g/dl; Status: F Test: HEMATOCRIT; Value: 40.0; Range: 42.0-52.0; Abnormal: Below low normal; Units: %; Status: F Test: MEAN CORPUSCULAR VOLUME; Value: 92.4; Range: 80.0-96.0; Units: fl; Status: F Test: MEAN CORPUSCULAR HEMOGLOBIN; Value: 32.5; Range: 27.0-33.0; Units: pg; Status: F Test: MEAN CORPUSCULAR HGB CONC; Value: 35.1; Range: 32.0-36.5; Units: g/dl; Status: F Test: RED CELL DISTRIBUTION WIDTH; Value: 11.5; Range: 11.5-14.5; Units: %; Status: F Test: PLATELET COUNT, AUTOMATED; Value: 244; Range: 150-450; Units: k/mm3; Status: F Test: NEUTROPHILS %; Value: 84.7; Range: 36.0-66.0; Abnormal: Above high normal; Units: %; Status: F Test: LYMPH %; Value: 8.8; Range: 24.0-44.0; Abnormal: Below low normal; Units: %; Status: F Test: MONO %; Value: 5.1; Range: 0.0-5.0; Abnormal: Above high normal; Units: %; Status: F Test: EOS %; Value: 0.3; Range: 0.0-3.0; Units: %; Status: F Test: BASO %; Value: 0.2; Range: 0.0-1.0; Units: %; Status: F Test: LARGE UNSTAINED CELL %; Value: 0.8; Range: 0.0-4.0; Units: %; Status: F Test: NEUTROPHILS #; Value: 10.7; Range: 1.8-7.7; Abnormal: Above high normal; Units: K/mm3; Status: F Test: LYMPH #; Value: 1.1; Range: 1.5-4.5; Abnormal: Below low normal; Units: K/mm3; Status: F Test: MONO #; Value: 0.7; Range: 0.0-0.8; Units: K/mm3; Status: F Test: EOS #; Value: 0.0; Range: 0.0-0.50; Units: K/mm3; Status: F Test: BASO #; Value: 0.0; Range: 0.0-0.2; Units: K/mm3; Status: F Test: LARGE UNSTAINED CELL #; Value: 0.1; Range: 0.0-0.4; Units: K/mm3; Status: F Lab Order: [facility]; SPEC'M 05/30/16 16:55 Test: GLUCOSE, FASTING; Value: 121; Range: 83-110; Abnormal: Above high normal; Units: MG/DL; Status: F Test: BLOOD UREA NITROGEN; Value: 37; Range: 7-18; Abnormal: Above high normal; Units: MG/DL; Status: F Test: CREATININE FOR GFR; Value: 1.54; Range: 0.70-1.30; Abnormal: Above high normal; Units: MG/DL; Status: F Test: GLOMERULAR FILTRATION RATE; Value: 46.4; Range: >35; Status: F Test: SODIUM LEVEL; Value: 135; Range: 136-145; Abnormal: Below low normal; Units: MEQ/L; Status: F Test: POTASSIUM SERUM; Value: 4.4; Range: 3.5-5.1; Units: MEQ/L; Status: F Test: CHLORIDE LEVEL; Value: 97; Range: 98-107; Abnormal: Below low normal; Units: MEQ/L; Status: F Test: CARBON DIOXIDE LEVEL; Value: 30; Range: 21-32; Units: MEQ/L; Status: F Test: ANION GAP; Value: 8; Range: 8-16; Units: MEQ/L; Status: F Test: CALCIUM LEVEL; Value: 9.0; Range: 8.8-10.2; Units: MG/DL; Status: F Test Note: ; Units are mL/min/1.73 m2 Chronic Kidney Disease Staging per NKF: Stage I & II GFR >=60 Normal to Mildly Decreased Stage III GFR 30-59 Moderately Decreased Stage IV GFR 15-29 Severely Decreased Stage V GFR <15 Very Little GFR Left ESRD GFR <15 on AUTOMATION QA LEAD Lab Order: PT/INR; SPEC'M 05/30/16 16:55 Test: PROTHROMBIN TIME; Value: 15.7; Range: 12.3-14.5; Abnormal: Above high normal; Units: SECONDS; Status: F Test: INR; Value: 1.24; Status: F Test Note: ; THERAPUTIC HUMAN INR VALUES INDICATIONS NORMAL RANGES PROPHYLAXIS/TREATMENT OF: VENOUS THROMBOSIS 2.0-3.0 PULMONARY EMBOLISM 2.0-3.0 PREVENTION OF SYSTEMIC EMBOLISM FROM: TISSUE HEART VALVES 2.0-3.0 ACUTE MYOCARDIAL INFARCTION 2.0-3.0 VALVULAR HEART DISEASE 2.0-3.0 ATRIAL FIBRILLATION 2.0-3.0 MECHANICAL VALVES(HIGH RISK) 2.5-3.5 RECURRENT MYOCARDIAL INFARCTION 2.5-3.5 Lab Order: PTT; SPEC'M 05/30/16 16:55 Test: PARTIAL THROMBOPLASTIN TIME; Value: 31.4; Range: 26.6-37.1; Units: SECONDS; Status: F Radiology Order: Chest, 1 View Test: Chest, 1 View REASON FOR EXAMINATION: Trauma; Clinical: Trauma.; ; Findings: There is a [id number] right pneumothorax with evidence for; acute right rib fractures on recent rib series. Mediastinum and cardiac; silhouette are normal in appearance and position without contralateral shift to; suggest tension pneumothorax. Bibasilar atelectasis noted.; ; Impression:; [id number] right pneumothorax with right lower rib fractures.; ; ; Signed by; Ezequiel Madrid MD 05/30/2016 05:22 P; Outcome: 05/30 17:30 Decision to Hospitalize by Provider. br1 18:02 Discharge Assessment: Patient awake, alert and oriented x 3. No cognitive and/or mlb1 functional deficits noted. Patient verbalized understanding of disposition instructions. patient administered narcotics - no. The following High Risk Discharge criteria are identified: None. Admitted to PCU accompanied by nurse, accompanied by tech, with oxygen, on monitor, with chart. Condition: good. No special radiology studies were completed. Property :Personal belongings accompany Pt. 18:05 Patient left the ED. dy Signatures: Dispatcher [employer] EDMS Starr Ross, Reg Reg Lasha Villalpando, RN RN dy Zurdo Posada RN RN mlb1 Osvaldo Cantu MD MD br1 Raf Crowder, STATE APPELLATE CLERK STATE APPELLATE CLERK dd6 Shyam Whelan Jordain, STATE APPELLATE CLERK STATE APPELLATE CLERK La Douglas,RN RN kc3 Chart Complete MTDD
--- NOTE | 2016-06-01 19:06 | EDDOCDS ---
Physician Documentation [facility] Name: Viral Montero Age: 81 yrs Sex: Male : 1935 Arrival Date: 05/30/2016 Time: 16:29 Bed 2 Private MD: Amarilys Gil FNP-C Disposition: 05/30/16 17:30 Hospitalization ordered by Joe Epps for Inpatient Admission. Preliminary diagnosis are Traumatic pneumothorax, Multiple fractures of ribs, right side. - Bed requested for PCU. - Status is Inpatient Admission. dy - Condition is Stable. - Problem is new. - Symptoms are unchanged. Historical: - Allergies: no known allergies; - Home Meds: 1. Sam Aspirin 325 mg oral tab 1 tab once daily 2. hydrochlorothiazide 25 mg Oral tab 1 tab 3. levetiracetam 1500mg oral tab 2 times per day 4. levothyroxine 25 mcg Oral cap 1 cap once daily 5. lamotrigine 25 mg Oral tab 2 tabs 2 times per day 6. lisinopril 2.5 mg Oral tab 1 tab once daily 7. simvastatin 20 mg Oral tab 1 tab once daily - PMHx: CVA x3; Hypercholesterolemia; Hypertension; Seizure Disorder; - PSHx: none; - Social history: Smoking status: Patient states was never smoker of tobacco. No barriers to communication noted, The patient speaks fluent Uzbek, Speaks appropriately for age. - Family history: Not pertinent. - : The pt / caregiver states he / she is not on anticoagulants. Home medication list is obtained from family members. - Exposure Risk Screening:: None identified. Vital Signs: 05/30 16:31 BP 153 / 87; Pulse 75; Resp 18 S; Temp 97.6(T); Pulse Ox 95% on R/A; Weight 77.11 kg / dd6 170 lbs (R); Height 5 ft. 9 in. (175.26 cm) (R); 16:47 BP 144 / 73 (auto/); mlb1 16:48 Pulse 73 MON; Pulse Ox 94% ; mlb1 16:52 BP 137 / 81 (auto/); mlb1 16:53 Pulse 72 MON; Pulse Ox 98% ; mlb1 17:04 BP 132 / 76 (auto/); mlb1 17:05 Pulse 71 MON; Pulse Ox 99% ; mlb1 17:19 BP 124 / 72 (auto/); mlb1 17:20 Pulse 71 MON; Pulse Ox 97% ; mlb1 17:32 BP 125 / 73 (auto/); mlb1 17:33 BP 125 / 73; Pulse 68; Resp 20; Temp 98.3; Pulse Ox 97% on 2 lpm NC; jlf 17:33 Pulse 69 MON; Pulse Ox 97% ; mlb1 17:49 BP 125 / 69 (auto/); mlb1 17:49 Pulse 69 MON; Pulse Ox 97% ; mlb1 17:59 BP 131 / 70 (auto/); mlb1 17:59 Pulse 70 MON; Pulse Ox 98% ; mlb1 18:02 BP 130 / 68; Pulse 68; Resp 18; Temp 98.1(TE); Pulse Ox 98% on 2 lpm NC; Pain 0/10; mlb1 16:31 Body Mass Index 25.10 (77.11 kg, 175.26 cm) dd6 MDM: 16:38 Undress patient ordered. br1 16:38 IV Saline Lock ordered. br1 16:39 CBC with Diff Ordered. EDMS 16:39 BMP Ordered. EDMS 16:46 Sulphate Tester/Pulse Ox/q 30 min VS ordered. br1 16:46 PT/INR Ordered. EDMS 16:47 PTT Ordered. EDMS 16:47 Chest, 1 View Ordered. EDMS 16:47 ECG WITH READING ER PHYS+CARDIAG ordered. EDMS 16:52 Oxygen at 2L/min via NC ordered. br1 17:16 Financial registration complete. jpb 17:18 [facility] Payment Agreement was scanned into [employer] and attached to record. jpb 17:25 CBC with Diff Reviewed. br1 17:25 ARTERIAL BLOOD GAS Ordered. EDMS 17:28 Chest, 2 view PA, Lat Ordered. EDMS 17:28 Chest, 2 view PA, Lat Ordered. EDMS 17:28 Chest, 2 view PA, Lat Ordered. EDMS 17:28 Chest, 2 view PA, Lat Ordered. EDMS 17:28 Chest, 2 view PA, Lat Ordered. EDMS 17:28 Chest, 2 view PA, Lat Ordered. EDMS 17:28 Chest, 2 view PA, Lat Ordered. EDMS 17:28 Chest, 2 view PA, Lat Ordered. EDMS 17:28 Chest, 2 view PA, Lat Ordered. EDMS 17:28 Chest, 2 view PA, Lat Ordered. EDMS 17:29 Admission / Observation Status ordered. EDMS 17:29 REGULAR DIET ordered. EDMS 05/31 10:59 T-Sheet-- Draft Copy was scanned into [employer] and attached to record. gb 10:59 ECG/EKG was scanned into [employer] and attached to record. gb Signatures: Dispatcher [employer] EDMS Hiwot Harmon, Residential Pest Control Technician Unit lbd Starr Ross, Reg Reg gb Lasha Bennett, DARIANA RN Zurdo Reyes RN RN mlb1 Osvaldo Cantu MD MD br1 Shyam Whelan Kelsi, RN RN kc3 The chart was reviewed and I authenticate all verbal orders and agree with the evaluation and treatment provided.Attachments: 05/30 17:18 [facility] Payment Agreement jpb 05/31 10:59 T-Sheet-- Draft Copy gb 10:59 ECG/EKG gb Chart Complete MTDD
[2016-06-01 21:13] VITALS: BP 131/71
[2016-06-01] MEDS: SIMVASTATIN 20 MG TAB PO SCH (21:15)
[2016-06-01] MEDS: ASPIRIN 325 MG TAB PO SCH (21:15)
[2016-06-02] VITALS (7 sets, daily range): BP systolic 124–153; BP diastolic 74–82
[2016-06-02] MEDS: LEVALBUTEROL 1.25 MG/0.5 ML CONCENTRATE NEB NEB SCH ×4 (02:00→20:45)
[2016-06-02] MEDS: LEVOTHYROXINE 0.025 MG TAB (25 MCG) PO SCH (05:59)
[2016-06-02 06:09] LABS: BASO % 0.4 % (0.0-1.0); EOS # 0.2 K/mm3 (0.0-0.50); EOS % 2.7 % (0.0-3.0); LARGE UNSTAINED CELL # 0.1 K/mm3 (0.0-0.4); LARGE UNSTAINED CELL % 1.2 % (0.0-4.0); LYMPH # 1.2 K/mm3 (1.5-4.5); LYMPH % 12.6 % (24.0-44.0); MEAN CORPUSCULAR HGB CONC 33.9 g/dl (32.0-36.5); MEAN CORPUSCULAR VOLUME 91.5 fl (80.0-96.0); MONO # 0.6 K/mm3 (0.0-0.8); MONO % 6.9 % (0.0-5.0); NEUTROPHILS % 76.1 % (36.0-66.0); PLATELET COUNT, AUTOMATED 209 k/mm3 (150-450); RED CELL DISTRIBUTION WIDTH 11.8 % (11.5-14.5); WHITE BLOOD COUNT 9.1 K/mm3 (4.0-10.0)
[2016-06-02 06:12] LABS: ANION GAP 8 MEQ/L (8-16); BLOOD UREA NITROGEN 21 MG/DL (7-18); CALCIUM LEVEL 8.9 MG/DL (8.8-10.2); CARBON DIOXIDE LEVEL 28 MEQ/L (21-32); CHLORIDE LEVEL 99 MEQ/L (98-107); CREATININE FOR GFR 1.01 MG/DL (0.70-1.30); GLOMERULAR FILTRATION RATE > 60.0 (>35); GLUCOSE, FASTING 103 MG/DL (83-110); POTASSIUM SERUM 4.1 MEQ/L (3.5-5.1); SODIUM LEVEL 135 MEQ/L (136-145)
[2016-06-02] MEDS: MOM 30ML SUSPENSION UDC PO SCH (08:36)
[2016-06-02] MEDS: lamoTRIgine 25 MG TAB PO SCH ×2 (08:36→20:29)
[2016-06-02] MEDS: DOCUSATE SODIUM 100 MG CAP PO SCH ×2 (08:36→20:29)
[2016-06-02] MEDS: HEPARIN SOD (PORCINE) 5000 UNITS/ML VIAL SC SCH ×2 (08:36→20:30)
[2016-06-02] MEDS: PANTOPRAZOLE 40MG INJ (PROTONIX) (C9113) IV SCH (08:36)
[2016-06-02] MEDS: LISINOPRIL *2.5 MG* TAB PO SCH (08:36)
[2016-06-02] MEDS: levETIRAcetam 250MG TABLET (KEPPRA) PO SCH ×2 (08:37→20:29)
[2016-06-02] MEDS: hydroCHLOROthiazide 25 MG TAB PO SCH (08:37)
--- NOTE | 2016-06-02 10:22 | IPN ---
DATE: 06/02/2016 Mr. Shelby chest tube has been on suction for 24 hours. He has an increase in the air space in the upper hemithorax. However, there is no subcutaneous emphysema and does not look as if he has an air leak. I am therefore going to remove his chest tube. His vital signs show a maximum temperature (T max) of 98.0 with a heart rate that ranges between 75-86 in a sinus rhythm, respiratory rate that is constant at 18 who is 94-95% saturated on room air and whose blood pressure is ranging between 131/71 to 124/82. His intake and output the past 24 hours has been recorded as 720 in and 1120 out for a negativity of 400 mL. He has put 20 mL out the chest tube, and there is no air leak. Weight today is 67.6 kg compared to 68.2 kg yesterday. On physical examination, his lungs do show mildly decrease breath sounds at the apex of the right hemithorax. He has normal vesicular sounds otherwise, without wheezes, rhonchi or rales. Percussion notes are full to the diaphragm. Cardiac exam is without murmurs, clicks, gallops or rubs. I cannot feel his point of maximum impulse (PMI). S1, S2 are normal. Abdomen is soft and nontender. Bowel sounds are positive. There is no hepatomegaly, no costovertebral angle (CVA) tenderness. He has not yet had a bowel movement and he is distended and tympanitic. Extremities show no pretibial edema, no calf tenderness. No differential swelling of the upper extremities. Skin is warm, dry and perfused without cyanosis or mottling, including that of the nail beds and the knees. Neck is supple. There is no jugular venous distention, no subcutaneous emphysema. Trachea is midline. Mouth shows his mucous membranes to be pink and moist. Lips and commissures without lesions. There is no thrush. Eyes show his pupils to be equal and reactive. Extraocular motor intact. Sclerae anicteric. Neurologic shows II-XII intact along with gross motor and gross sensation intact. Gait is not tested. Psychiatric shows him to be awake and alert, oriented times three with appropriate mood and affect and conversational. His dysarthria however, has not changed. His permanent sequalae <<2:27>> prior CVAs. His white count today is 9.1 with a hemoglobin and hematocrit of 12.8 and 37.9, essentially unchanged from yesterday, with a platelet count of 209. Differential shows 76% neutrophils, 12% lymphocytes, 6% monocytes. There are no immature forms, no toxic granulations. His electrolytes are essentially normal with a BUN and creatinine of 21 and 1.0, a glucose of 103 and a calcium of 8.9. His transient renal insufficiency has now completely cleared. His chest x-ray is discussed above. He still has an apical air space in the right upper hemithorax. It is worse than yesterday's. It measures approximately 2 cm from cupula to lung apex. Costophrenic angles are sharp. IMPRESSION: 1. Acute pneumothorax. 2. Multiple rib fractures; 7, 8 and 9. 3. Cerebrovascular disease. 4. History of seizures. 5. Hypertension. 6. Hypothyroidism. 7. Hypercholesterolemia. 8. Acute renal insufficiency, resolved. PLAN AND DISCUSSION: I will discontinue his chest tube today. We will continue him on aggressive lung expansion, including incentive spirometry and PEP therapy. I do not think that he has a present air leak. I am going to tentatively plan to discharge him tomorrow. He has already been up and around walking.
[2016-06-02] MEDS ORDERED: SLF 3 ML SYR IV PRN (15:30)
[2016-06-02] MEDS: ASPIRIN 325 MG TAB PO SCH (20:29)
[2016-06-02] MEDS: SIMVASTATIN 20 MG TAB PO SCH (20:29)
[2016-06-02] MEDS: SLF 3 ML SYR IV SCH (20:29)
[2016-06-03] MEDS: LEVALBUTEROL 1.25 MG/0.5 ML CONCENTRATE NEB NEB SCH ×2 (02:00→07:41)
[2016-06-03 04:00] VITALS: BP 130/74
[2016-06-03 05:26] LABS: BASO # 0.1 K/mm3 (0.0-0.2); BASO % 0.8 % (0.0-1.0); EOS # 0.3 K/mm3 (0.0-0.50); EOS % 2.9 % (0.0-3.0); LARGE UNSTAINED CELL # 0.1 K/mm3 (0.0-0.4); LARGE UNSTAINED CELL % 1.1 % (0.0-4.0); LYMPH # 1.5 K/mm3 (1.5-4.5); LYMPH % 14.9 % (24.0-44.0); MEAN CORPUSCULAR HEMOGLOBIN 30.6 pg (27.0-33.0); MEAN CORPUSCULAR HGB CONC 34.4 g/dl (32.0-36.5); MEAN CORPUSCULAR VOLUME 88.9 fl (80.0-96.0); MONO # 0.6 K/mm3 (0.0-0.8); MONO % 6.5 % (0.0-5.0); NEUTROPHILS % 73.8 % (36.0-66.0); PLATELET COUNT, AUTOMATED 210 k/mm3 (150-450); RED CELL DISTRIBUTION WIDTH 12.5 % (11.5-14.5); WHITE BLOOD COUNT 9.4 K/mm3 (4.0-10.0)
[2016-06-03 05:44] LABS: ANION GAP 8 MEQ/L (8-16); BLOOD UREA NITROGEN 23 MG/DL (7-18); CALCIUM LEVEL 9.4 MG/DL (8.8-10.2); CARBON DIOXIDE LEVEL 27 MEQ/L (21-32); CHLORIDE LEVEL 102 MEQ/L (98-107); CREATININE FOR GFR 0.96 MG/DL (0.70-1.30); GLOMERULAR FILTRATION RATE > 60.0 (>35); GLUCOSE, FASTING 110 MG/DL (83-110); POTASSIUM SERUM 4.1 MEQ/L (3.5-5.1); SODIUM LEVEL 137 MEQ/L (136-145)
[2016-06-03] MEDS: SLF 3 ML SYR IV SCH (06:27)
[2016-06-03] MEDS: LEVOTHYROXINE 0.025 MG TAB (25 MCG) PO SCH (06:27)
[2016-06-03 07:10] VITALS: BP 127/77
--- NOTE | 2016-06-03 08:02 | REP ---
Clinical: Chest tube removal. Technique: PA and lateral. Comparison: 06/02/2016. Findings: Previously noted right chest tube has been removed. Stable residual right apical pneumothorax again identified along with basilar atelectasis and small amounts of pleural fluid. Stable right rib fractures. Mediastinum and cardiac silhouette are within normal limits. Impression: Status post chest tube removal with continued evidence for right apical pneumothorax unchanged compared to prior examination. Bibasilar atelectasis and small pleural effusions again noted. Signed by Ezequiel Madrid MD 06/03/2016 07:54 A
[2016-06-03] MEDS: MOM 30ML SUSPENSION UDC PO SCH (08:41)
[2016-06-03] MEDS: PANTOPRAZOLE 40MG INJ (PROTONIX) (C9113) IV SCH (08:41)
[2016-06-03 08:42] VITALS: BP 127/77
[2016-06-03] MEDS: DOCUSATE SODIUM 100 MG CAP PO SCH (08:42)
[2016-06-03] MEDS: levETIRAcetam 250MG TABLET (KEPPRA) PO SCH (08:42)
[2016-06-03] MEDS: hydroCHLOROthiazide 25 MG TAB PO SCH (08:42)
[2016-06-03] MEDS: lamoTRIgine 25 MG TAB PO SCH (08:42)
[2016-06-03] MEDS: LISINOPRIL *2.5 MG* TAB PO SCH (08:42)
[2016-06-03] MEDS: HEPARIN SOD (PORCINE) 5000 UNITS/ML VIAL SC SCH (08:43)
--- NOTE | 2016-06-04 07:32 | DSES ---
DATE OF ADMISSION: 05/30/2016 DATE OF DISCHARGE: 06/03/2016 DISCHARGE DIAGNOSES: Acute pneumothorax right side. Multiple rib fractures, nondisplaced, 7, 8 and 9. Cerebrovascular disease, status post stroke. History of seizures. Dysarthria. Hypertension. Hypothyroidism. Hypercholesterolemia. Acute renal insufficiency, resolved at discharge. HOSPITAL COURSE: The patient is an 81-year-old white male who the night prior to admission fell in the bathroom and hit his right side on the bathtub. His was in the next room and heard him fall and hurried to his side to help him. He was able to get up and get back to bed. He had increasing pain and shortness of breath over the succeeding 16 hours, and, therefore, presented to the emergency room. He was found to have a pneumothorax on the right side along with multiple fractured ribs. He was admitted to the hospital after a chest tube was placed. He had a benign hospital course. The lung expanded initially to the chest wall but then secondary to positioning of the chest tube, he had a residual air space which improved after the chest tube was removed. He was able to ambulate and walk around without difficulty. He is being discharged today on his home medications, which include aspirin 325 mg daily, hydrochlorothiazide 25 mg daily, lamotrigine 25 mg twice a day, Keppra 1000 mg twice a day, Synthroid 25 mg daily, lisinopril 2.5 mg daily and simvastatin 20 mg nightly. His pain was very well controlled in the hospital, and I am sending him only home on Tylenol as he is not taking any narcotic medications. I will see him back in the office in 10 days with a chest x-ray in post-hospitalization followup. His discharge white count is 9.4 with a discharge hemoglobin and hematocrit of 12.8 and 37.3 and a discharge platelet count of 210. Electrolytes are normal on discharge with a BUN and creatinine of 23 and 0.96. Chest x-ray shows minimal air space in the right upper hemithorax. Remainder of the lung is fully expanded to the chest wall.
== END 2016-06-03 12:28 | disposition home health service (06) | DRG 184 ==
LOC: M ED 16:29 → M ED INP 17:36 → M PCU 18:31
PROVIDERS: ADMIT Thoracic Surgery (Cardiothoracic Vascular Surgery); ATTEND Thoracic Surgery (Cardiothoracic Vascular Surgery)
PROC: 0W9930Z Drainage of Right Pleural Cavity with Drainage Device, Percutaneous Approach (ICD-10-PCS; principal; 2016-05-30)
DX: S22.41XA Multiple fractures of ribs, right side, initial encounter for closed fracture (principal); S27.0XXA Traumatic pneumothorax, initial encounter; X58.XXXA Exposure to other specified factors, initial encounter; Y92.89 Other specified places as the place of occurrence of the external cause; Y93.89 Activity, other specified; Y99.8 Other external cause status; I10 Essential (primary) hypertension; I69.322 Dysarthria following cerebral infarction; E78.00 Pure hypercholesterolemia, unspecified; E03.9 Hypothyroidism, unspecified; Z79.82 Long term (current) use of aspirin; Z79.899 Other long term (current) drug therapy; I25.2 Old myocardial infarction

== ENCOUNTER → 2016-05-30 | Outpatient (CLI) | payer OTHER ==
[~2016-05-30] MED LIST: ASPI325T PO; HYDR25TAB PO; KEPP1000 PO; KEPP500T6 PO; LAMO25TA2 PO; LEVO25TA34 PO; LISI25TA PO; SIMV20TA2 PO
--- NOTE | 2016-05-30 15:45 | REP ---
Clinical: Contusion. Technique: Frontal view of the chest with multiple views of the right hemithorax. Findings: There is a moderate right hydropneumothorax with acute right seventh through ninth rib fractures. There is no significant mediastinal shift to suggest tension pneumothorax at this time. Bibasilar atelectasis noted. Mild levoconvex scoliosis is appreciated along with tortuous thoracic aorta. Cardiac silhouette is normal. Impression: Acute right seventh through ninth rib fractures with moderate right hydropneumothorax. Findings discussed with Dr. Corbett at [facility] facility. Signed by Ezequiel Madrid MD 05/30/2016 03:37 P
== END ==
LOC: M WUC 14:57
PROVIDERS: ATTEND Physician Assistant
DX: S22.41XA Multiple fractures of ribs, right side, initial encounter for closed fracture (principal); X58.XXXA Exposure to other specified factors, initial encounter; Y92.89 Other specified places as the place of occurrence of the external cause; Y93.89 Activity, other specified; Y99.8 Other external cause status